=== PATIENT | female | born 1955 | race Caucasian/White ===

== ENCOUNTER 2019-07-31 17:56 | Emergency (ER) | payer OTHER ==
--- OUTSIDE RECORDS SUMMARY | 2019-07-31 18:56 | XMS REPORT | Continuity of Care Document ---
:1955 External Reference #:[id number] Author Name Abraham Moore DO, MPH Address [address] [place] [id number] Care Team Providers Name Role Phone Yoshi Jasso M.D. - Internal Care Team Information Records Management Associate [phone] Medicine Problems Active Problems Provider Date Chronic pain MooreElizph, DO, MPH Onset: 07/25/2019 Neck pain Moore, Abraham, DO, MPH Onset: 07/25/2019 Cervical somatic dysfunction Moore, Abraham, DO, MPH Onset: 07/25/2019 Pain in thoracic spine Moore, Abraham, DO, MPH Onset: 07/25/2019 Somatic dysfunction of thoracic region Moore, Abraham, DO, MPH Onset: 2019 Low back pain Moore, Abraham, DO, MPH Onset: 07/25/2019 Somatic dysfunction of lumbar region Moore, Abraham, DO, MPH Onset: 07/25/2019 Arthralgia of the pelvic region and thigh Moore, Abraham, DO, MPH Onset: 2019 Somatic dysfunction of pelvic region Moore, Abraham, DO, MPH Onset: 07/25/2019 Somatic dysfunction of sacroiliac joint Moore, Abraham, DO, MPH Onset: 2019 Sacrococcygeal disorders, not elsewhere Moore, Abraham, DO, MPH Onset: 2019 classified Malaise and fatigue Moore, Abraham, DO, MPH Onset: 07/25/2019 Gastroesophageal reflux disease Moore, Abraham, DO, MPH Onset: 07/25/2019 Systemic lupus erythematosus Moore, Abraham, DO, MPH Onset: 07/25/2019 Anemia Moore, Abraham, DO, MPH Onset: 07/25/2019 Nausea Abraham Moore, DO, MPH Onset: 07/25/2019 Long-term current use of opiate analgesic MooreAbraham price, DO, MPH Onset: 2019 drug Social History Type Date Description Comments Sex Unknown ETOH Use Occasionally consumes alcohol Recreational Drug Use Never Used Drugs Tobacco Use Start: Unknown End: Patient is a former smoker Unknown Smoking Status Reviewed: 07/25/19 Patient is a former smoker Allergies, Adverse Reactions, Alerts Active Allergies Reaction Severity Comments Date Vancomycin 10/25/2013 Nucynta 10/25/2013 Penicillin 10/25/2013 Sulfa Antibiotics 10/25/2013 Cipro 10/25/2013 Bactrim 10/25/2013 Biaxin 10/25/2013 Benadryl 10/25/2013 Demerol 10/25/2013 Librax 10/25/2013 Morphine 10/25/2013 Macrodantin 10/25/2013 Peanut-containing Drug Products 10/25/2013 Gluten 10/25/2013 Dairy 10/25/2013 Medications Active Medications SIG Qnty Indications Ordering Date Provider Ondansetron HCL si-2 by mouth 180tabs Abraham Moore, 07/25/2019 4mg every 8 hours as DO, MPH Tablets directed as needed Oxycontin si by mouth 60tabs Abraham Moore, 06/20/2018 20mg Tab every 12 hours as DO, MPH ER 12H Abuse-Det directed chronic pain patient Gabapentin si by mouth 90caps Abraham Moore, 06/20/2017 300mg three times a day DO, MPH Capsules as directed Oxycodone HCL si/4 30ml Abraham Moore, 08/03/2016 milliliters sl by DO, MPH 100mg/5ML mouth every 6 to 8 Concentrate hours as directed chronic pain patient Oxycodone HCL si-2 by mouth 180tabs Abraham Moore, 12/17/2014 5mg every 4 to 6 hours DO, MPH Tablets as directed chronic pain patient Shelby Thyroid si po qd 30tabs Unknown 180mg Tablets Protonix 1 po qd 30tabs Unknown 40mg Tablet Lasix 1 po bid 60tabs Unknown 40mg Tablets Potassium Chloride tid 60caps Unknown ER 10Meq Capsules ER Tylenol otc Unknown 325mg Tablets History Medications Keflex si by mouth twice 20caps Abraham Moore, 04/25/2019 - 500mg a day as directed HALEY GARG 06/18/2019 Capsules Medrol medication to be 21units Abraham Moore, 04/25/2019 - 4mg TBPK taken as directed DO MPH 06/18/2019 Immunizations Description No Information Available Vital Signs Date Vital Result Comment 07/25/2019 8:58am BP Systolic 132 mmHg BP Diastolic 84 mmHg Heart Rate 80 /min Respiratory Rate 20 /min Height 68 inches 5'8" Weight 155.00 lb Pain Level 6 Pain at this time. Pain Level With Medicine 5 on average with meds Pain Level Without Medicine 9 without meds BMI (Body Mass Index) 23.6 kg/m2 06/18/2019 9:19am BP Systolic 120 mmHg BP Diastolic 74 mmHg Heart Rate 76 /min Respiratory Rate 20 /min Height 68 inches 5'8" Weight 154.00 lb Pain Level 5 Pain at this time. Pain Level With Medicine 4 on average with meds Pain Level Without Medicine 9 without meds BMI (Body Mass Index) 23.4 kg/m2 Results Description No Information Available Procedures Date Code Description Status 06/18/2019 18383 Omt 3-4 Body Regions Completed 06/18/2019 04066 Therapeutic, Prophylactic Or Diagnostic Injection Subq/Im Completed 06/18/2019 65830 Brief Emotional/Behav Assessment W/ Scoring Doc Per Completed Standard Inst 05/18/2019 33476 Omt 3-4 Body Regions Completed 05/18/2019 59152 Therapeutic, Prophylactic Or Diagnostic Injection Subq/Im Completed 04/19/2019 73250 Omt 3-4 Body Regions Completed 04/19/2019 54980 Therapeutic, Prophylactic Or Diagnostic Injection Subq/Im Completed 03/21/2019 69407 Omt 3-4 Body Regions Completed 03/21/2019 76384 Therapeutic, Prophylactic Or Diagnostic Injection Subq/Im Completed 02/20/2019 12452 Omt 3-4 Body Regions Completed 02/20/2019 95263 Therapeutic, Prophylactic Or Diagnostic Injection Subq/Im Completed Medical Devices Description No Information Available Encounters Type Date Location Provider Dx Diagnosis Office Visit 06/18/2019 Main Office as Of Abraham Moore DO, G89.29 Other chronic pain 9:00a 06/30/13 MPH M54.2 Cervicalgia M99.01 Segmental and somatic dysfunction of cervical region M54.6 Pain in thoracic spine M99.02 Segmental and somatic dysfunction of thoracic region M54.5 Low back pain M99.03 Segmental and somatic dysfunction of lumbar region Z79.891 [facility] (current) use of opiate analgesic R53.83 Other fatigue M79.671 Pain in right foot Z13.31 Encounter for screening for depression Office Visit 05/18/2019 9:15a Main Office as Abraham Moore, G89.29 Other chronic Of 06/30/13 DO, MPH pain M54.2 Cervicalgia M99.01 Segmental and somatic dysfunction of cervical region M54.6 Pain in thoracic spine M99.02 Segmental and somatic dysfunction of thoracic region M54.5 Low back pain M99.03 Segmental and somatic dysfunction of lumbar region M79.671 Pain in right foot 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 R53.83 Other fatigue Office Visit 04/19/2019 9:00a Main Office as Abraham Moore, G89.29 Other chronic Of 06/30/13 DO, MPH pain M54.2 Cervicalgia M99.01 Segmental and somatic dysfunction of cervical region M54.6 Pain in thoracic spine M99.02 Segmental and somatic dysfunction of thoracic region M54.5 Low back pain M99.03 Segmental and somatic dysfunction of lumbar region 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 R53.83 Other fatigue Office Visit 03/21/2019 9:15a Main Office as Abraham Moore G89.29 Other chronic Of 06/30/13 DO, MPH pain M54.5 Low back pain M99.03 Segmental and somatic dysfunction of lumbar region M54.6 Pain in thoracic spine M99.02 Segmental and somatic dysfunction of thoracic region M54.2 Cervicalgia M99.01 Segmental and somatic dysfunction of cervical region R53.83 Other fatigue 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 Office Visit 02/20/2019 9:15a Main Office as Abraham Moore G89.29 Other chronic Of 06/30/13 DO, MPH pain M54.2 Cervicalgia M99.01 Segmental and somatic dysfunction of cervical region M54.6 Pain in thoracic spine M99.02 Segmental and somatic dysfunction of thoracic region M54.5 Low back pain M99.03 Segmental and somatic dysfunction of lumbar region 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 R53.83 Other fatigue Assessments Date Code Description Provider 07/25/2019 G89.29 Other chronic pain Moore, Abraham, DO, MPH 07/25/2019 M54.2 Cervicalgia Moore, Abraham, DO, MPH 07/25/2019 M99.01 Segmental and somatic dysfunction of Moore, Abraham, DO, MPH cervical region 07/25/2019 M54.6 Pain in thoracic spine Moore, Abraham, DO, MPH 07/25/2019 M99.02 Segmental and somatic dysfunction of Moore, Abraham, DO, MPH thoracic region 07/25/2019 M54.5 Low back pain Moore, Abraham, DO, MPH 07/25/2019 M99.03 Segmental and somatic dysfunction of lumbar Moore, Abraham, DO, MPH region 07/25/2019 M25.551 Pain in right hip Moore, Abraham, DO, MPH 07/25/2019 M25.552 Pain in left hip Moore, Abraham, DO, MPH 07/25/2019 R53.83 Other fatigue Moore, Abraham, DO, MPH 07/25/2019 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 Moore, Abraham , DO, MPH 07/25/2019 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, Abraham, DO , MPH nervous system 07/25/2019 M99.05 Segmental and somatic dysfunction of pelvic Moore, Abraham, DO, MPH region 07/25/2019 M53.3 Sacrococcygeal disorders, not elsewhere Moore, Abraham, DO, MPH classified 07/25/2019 M99.04 Segmental and somatic dysfunction of sacral Moore, Abraham, DO, MPH region 07/25/2019 K86.1 Other chronic pancreatitis Moore, Abraham, DO, MPH 07/25/2019 K21.9 Gastro-esophageal reflux disease without Moore, Abraham, DO, MPH esophagitis 07/25/2019 M32.9 Systemic lupus erythematosus, unspecified Moore, Abraham, DO , MPH 07/25/2019 D64.9 Anemia, unspecified Moore, Abraham, DO, MPH 07/25/2019 R11.0 Nausea Moore, Abraham, DO, MPH 06/18/2019 G89.29 Other chronic pain Moore, Abraham, DO, MPH 06/18/2019 M54.2 Cervicalgia Moore, Abraham, DO, MPH 06/18/2019 M99.01 Segmental and somatic dysfunction of Moore, Abraham, DO, MPH cervical region 06/18/2019 M54.6 Pain in thoracic spine Moore, Abraham, DO, MPH 06/18/2019 M99.02 Segmental and somatic dysfunction of Moore, Abraham, DO, MPH thoracic region 06/18/2019 M54.5 Low back pain Moore, Abraham, DO, MPH 06/18/2019 M99.03 Segmental and somatic dysfunction of lumbar Moore, Abraham, DO, MPH region 06/18/2019 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 Moore, Abraham , DO, MPH 06/18/2019 R53.83 Other fatigue Moore, Abraham, DO, MPH 06/18/2019 M79.671 Pain in right foot Moore, Abraham, DO, MPH 06/18/2019 Z13.31 Encounter for screening for depression Moore, Abraham, DO, MPH 05/18/2019 G89.29 Other chronic pain Moore, Abraham, DO, MPH 05/18/2019 M54.2 Cervicalgia Moore, Abraham, DO, MPH 05/18/2019 M99.01 Segmental and somatic dysfunction of Moore, Abraham, DO, MPH cervical region 05/18/2019 M54.6 Pain in thoracic spine Moore, Abraham, DO, MPH 05/18/2019 M99.02 Segmental and somatic dysfunction of Moore, Abraham, DO, MPH thoracic region 05/18/2019 M54.5 Low back pain Moore, Abraham, DO, MPH 05/18/2019 M99.03 Segmental and somatic dysfunction of lumbar Moore, Abraham, DO, MPH region 05/18/2019 M79.671 Pain in right foot Moore, Abraham, DO, MPH 05/18/2019 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 Moore, Abraham , DO, MPH 05/18/2019 R53.83 Other fatigue Moore, Abraham, DO, MPH 04/19/2019 G89.29 Other chronic pain Moore, Abraham, DO, MPH 04/19/2019 M54.2 Cervicalgia Moore, Abraham, DO, MPH 04/19/2019 M99.01 Segmental and somatic dysfunction of Moore, Abraham, DO, MPH cervical region 04/19/2019 M54.6 Pain in thoracic spine Moore, Abraham, DO, MPH 04/19/2019 M99.02 Segmental and somatic dysfunction of Moore, Abraham, DO, MPH thoracic region 04/19/2019 M54.5 Low back pain Moore, Abraham, DO, MPH 04/19/2019 M99.03 Segmental and somatic dysfunction of lumbar Moore, Abraham, DO, MPH region 04/19/2019 Z79.891 [facility] (current) use of opiate analgesic Moore, Abraham , DO, MPH 04/19/2019 R53.83 Other fatigue Moore, Abraham, DO, MPH 03/21/2019 G89.29 Other chronic pain Moore, Abraham, DO, MPH 03/21/2019 M54.5 Low back pain Moore, Abraham, DO, MPH 03/21/2019 M99.03 Segmental and somatic dysfunction of lumbar Moore, Abraham, DO, MPH region 03/21/2019 M54.6 Pain in thoracic spine Moore, Abraham, DO, MPH 03/21/2019 M99.02 Segmental and somatic dysfunction of Moore, Abraham, DO, MPH thoracic region 03/21/2019 M54.2 Cervicalgia Moore, Abraham, DO, MPH 03/21/2019 M99.01 Segmental and somatic dysfunction of Moore, Abraham, DO, MPH cervical region 03/21/2019 R53.83 Other fatigue Moore, Abraham, DO, MPH 03/21/2019 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 Moore, Abraham , DO, MPH 02/20/2019 G89.29 Other chronic pain Abraham Moore DO MPH 02/20/2019 M54.2 Cervicalgia Abraham Moore DO, MPH 02/20/2019 M99.01 Segmental and somatic dysfunction of Abraham Moore DO, MPH cervical region 02/20/2019 M54.6 Pain in thoracic spine Abraham Moore DO MPH 02/20/2019 M99.02 Segmental and somatic dysfunction of Abraham Moore DO, MPH thoracic region 02/20/2019 M54.5 Low back pain Abraham Moore DO MPH 02/20/2019 M99.03 Segmental and somatic dysfunction of lumbar Abraham Moore DO, MPH region 02/20/2019 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 Symptoms and complaints discussed and reviewed today. No significant changes in physical findings. Continue current medical pain management.M54.2 CervicalgiaComments: Chronic. Symptoms and complaints discussed and reviewed today. No significant changes in physical findings. Continue current medical pain management.M99.01 Segmental and somatic dysfunction of cervical regionComments:Chronic. Symptoms and complaints discussed and reviewed today. Somatic dysfunctions noted warrantingOMT. Continue current medical pain management and OMT. [id number]. OMT performed.M54.6 Pain in thoracic spineComments:Chronic.Symptoms and complaints discussed and reviewed today. No significant changes in physical findings. Continue current medical pain management.M99.02 Segmental and somatic dysfunction of thoracic regionComments:Chronic. Symptoms and complaints discussed and reviewed today. Notable somatic dysfunctions noted warranting OMT. Continue current medical pain management and OMT. [id number]. OMT performed after evaluation. HVLA.M54.5 Low back painComments:Chronic. Symptoms and complaints discussed and reviewed today.No changes in physical findings. Patient is stable and comfortable when current medical therapy is rendered.M99.03 Segmental and somatic dysfunction of lumbar regionComments: Chronic. Symptoms and complaints discussed and reviewed today. Lumbar somatic dysfunctions noted warranting OMT. Continue current medical pain management and OMT. [id number]. OMT performed after evaluation. HVLA.M25.551 Pain in right hipComments:Chronic. Symptoms and complaints discussed and reviewed today. No significant changes in physical findings. Continue current medical pain management.M25.552 Pain in left hipComments:Chronic. Symptoms and complaints discussed and reviewed today. No significant changes in physical findings. Continue current medical pain management.R53.83 Other fatigueComments:Symptoms and complaints discussed and reviewed today. No significant changes in physical findings. Continue current medical pain management. B12 injection administered after patient evaluated. 1ml IM for fatigue. (See Consent for injection-B12 document for lot number and expiration date.)Z79.891 regional intermodal truck driver ( current) use of opiate analgesicNew Labs:Urine Drug Screen, Ordered: Comments:Urine drug screen sample taken today to monitor opiate use and to monitor use of illicit substances.Will discuss results at next appointment.The following tests were ordered:6 AM, AMPH, MICHAEL, AMY, BUP, CARIS, COCM, ETG, FENT , MCSHSG, OPI, OXY, PCP, TAPEN, XTSY, ZOLP. A urine drug test (UDT) was ordered for this patient and collected on site today. Creatinine has been ordered as well for specimen validity, not for kidney function. Preliminary UDT results are not final and should not be used to determine patient care or plan of treatment. Initially a qualitative immunoassay screen will bedone. Any inconsistent or positive findings will be further tested with a more comprehensive quantitative confirmation LCMS study. It is part of the treatment process of prescribing controlled substances and is considered standard of care.G90.3 Multi-system degeneration of the autonomic nervous systemNew Orders: Sudomotor Test, Ordered: 07/25/19Comments:Sudomotor testing ordered to determine the effect, if any, of chronic illness and pain on small nerve fibers and/or autonomic nervous system function. Future testing will help to monitor the effects ofchronic illness,pain and subsequent treatments on the autonomic nervous system. If proper diagnosis and monitoring of ANS and/or small pain fiber problems is not appropriately addressed, adequate pain management may not be achieved.M99.05 Segmental and somatic dysfunction of pelvic regionComments: Chronic. Symptoms and complaints discussed and reviewed today. Pelvic somatic dysfunctions noted warranting OMT. Continue current medical pain management and OMT. Pelvic Shear. OMT performed. MFR. HVLA.M53.3 Sacrococcygeal disorders , not elsewhere classifiedComments:Chronic. Symptoms and complaints discussed and reviewed today. Notable sacral somatic dysfunctions warranting OMT. Patient is stable and comfortable with current medical therapy.M99.04 Segmental and somatic dysfunction of sacral regionComments:Chronic. Symptoms and complaints discussed and reviewed today. Sacral somatic dysfunctions noted warranting OMT. Continue current medical pain management and OMT. Sacral Torsion. OMT performed after evaluation. HVLA.K86.1 Other chronic pancreatitisComments: Chronic. Symptoms and complaints discussed and reviewed today. No significant changes in physical findings. Continue current medical pain management.K21.9 Gastro-esophageal reflux disease without esophagitisComments:Following as pertains to chronic pain medications particularly NSAIDS and Tylenol as well as any meds that effect the GI tract.M32.9 Systemic lupus erythematosus, unspecifiedComments:Chronic. Symptoms and complaints discussed and reviewed today. Continue current medical pain management. 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 Will follow as pertains to pain management.D64.9 Anemia, unspecifiedComments:Followed by Dr Crawford in hemotology/oncology, currently. Will follow in terms of pain management.R11.0 NauseaComments:Continue medical management with Zofran - New Medications listed below.AllNew Medication: Ondansetron HCL 4 mg - si-2 by mouth every 8 hours as directed as neededComments:Continue current medical pain management; injection therapy, osteopathic manipulation, PT / modalities, and consults as needed to manage chronic pain.Non - opioid pain management discussed and optionsdiscussed.Side effects discussed; anticipatory guidance given. Patient clearly understand and agree with all medical treatments and suggestions. All medicines prescribed are adequate and appropriate for this patient's complaint of pain, medical history, physical, and personal goals.Goals of Treatment are to provide adequate and appropriate multidisciplinary medical pain management to increase/ maintain patient's quality of life and functionality while maintaining satisfactory side effect profile andminimizing regional intermodal truck driver end-organ damage. Importance of regular nutrition throughout the day discussed.Activity as toleratedContinue with PCP Functional Status Description No Information Available Mental Status Description No Information Available Referrals Description No Information Available
--- OUTSIDE RECORDS SUMMARY | 2019-07-31 18:56 | XMS REPORT | Continuity of Care Document ---
:1955 External Reference #:[id number] Author Name Abraham Moore DO, MPH Address [address] [place] [address], [address] [place] [address] Care Team Providers Name Role Phone Yoshi Jasso M.D. - Internal Care Team Information Cpc Medicine Problems Description No Information Available Social History Type Date Description Comments Sex Unknown ETOH Use Occasionally consumes alcohol Recreational Drug Use Never Used Drugs Tobacco Use Start: Unknown End: Patient is a former smoker Unknown Smoking Status Reviewed: 06/18/19 Patient is a former smoker Allergies, Adverse Reactions, Alerts Active Allergies Reaction Severity Comments Date Vancomycin 10/25/2013 Nucynta 10/25/2013 Penicillin 10/25/2013 Sulfa Antibiotics 10/25/2013 Cipro 10/25/2013 Bactrim 10/25/2013 Biaxin 10/25/2013 Benadryl 10/25/2013 Demerol 10/25/2013 Librax 10/25/2013 Morphine 10/25/2013 Macrodantin 10/25/2013 Peanut-containing Drug Products 10/25/2013 Gluten 10/25/2013 Dairy 10/25/2013 Medications Active Medications SIG Qnty Indications Ordering Date Provider Oxycontin si by mouth 60tabs Abraham Moore, [...] MPH Tablets as directed chronic pain patient Lizette Thyroid si po qd 30tabs Unknown 180mg Tablets Protonix 1 po qd 30tabs Unknown 40mg Tablet Lasix 1 po bid 60tabs Unknown 40mg Tablets Potassium Chloride tid 60caps Unknown ER 10Meq Capsules ER Symbicort Unknown 80-4.5mcg/Act Aerosol Tylenol otc Unknown 325mg Tablets Duloxetine HCL 1 cap by mouth Unknown 20mg every morning as Caps DR Raymond directed chronic pain patient. History Medications Keflex si by mouth twice 20caps Abraham Moore, 04/25/2019 - 500mg a day as directed DO MPH 06/18/2019 Capsules Medrol medication to be 21units Abraham Moore, 04/25/2019 - 4mg TBPK taken as directed DO MPH 06/18/2019 Immunizations Description No Information Available Vital Signs Date Vital Result Comment 06/18/2019 9:19am BP Systolic 120 mmHg BP Diastolic 74 mmHg Heart Rate 76 /min Respiratory Rate 20 /min Height 68 inches 5'8" Weight 154.00 lb Pain Level 5 Pain at this time. Pain Level With Medicine 4 on average with meds Pain Level Without Medicine 9 without meds BMI (Body Mass Index) 23.4 kg/m2 05/18/2019 9:15am BP Systolic 116 mmHg BP Diastolic 70 mmHg Heart Rate 72 /min Respiratory Rate 18 /min Height 68 inches 5'8" Weight 154.00 lb Pain Level 4 Pain at this time. Pain Level With Medicine 3 on average with meds Pain Level Without Medicine 9 without meds BMI (Body Mass Index) 23.4 kg/m2 Results Description No Information Available Procedures Date Code Description Status 05/18/2019 31568 Omt 3-4 Body Regions Completed 05/18/2019 53147 Therapeutic, Prophylactic Or Diagnostic Injection Subq/Im Completed 04/19/2019 72661 Omt 3-4 Body Regions Completed 04/19/2019 21082 Therapeutic, Prophylactic Or Diagnostic Injection Subq/Im Completed 03/21/2019 42301 Omt 3-4 Body Regions Completed 03/21/2019 64051 Therapeutic, Prophylactic Or Diagnostic Injection Subq/Im Completed 02/20/2019 18507 Omt 3-4 Body Regions Completed 02/20/2019 38915 Therapeutic, Prophylactic Or Diagnostic Injection Subq/Im Completed 01/11/2019 95309 Omt 3-4 Body Regions Completed 01/11/2019 16456 Therapeutic, Prophylactic Or Diagnostic Injection Subq/Im Completed 12/20/2018 59073 Omt 5-6 Body Regions Completed 12/20/2018 68368 Therapeutic, Prophylactic Or Diagnostic Injection Subq/Im Completed Medical Devices Description No Information Available Encounters Type Date Location Provider Dx Diagnosis Office Visit 05/18/2019 Main Office as Of Abraham Moore DO, G89.29 Other chronic pain 9:15a 06/30/13 MPH M54.2 Cervicalgia M99.01 Segmental and somatic dysfunction of cervical region M54.6 Pain in thoracic spine M99.02 Segmental and somatic dysfunction of thoracic region M54.5 Low back pain M99.03 Segmental and somatic dysfunction of lumbar region M79.671 Pain in right foot Z79.891 [facility] (current) use of opiate analgesic R53.83 Other fatigue Office Visit 04/19/2019 9:00a Main Office as Abraham Moore G89.29 Other chronic Of 06/30/13 DO, MPH pain M54.2 Cervicalgia M99.01 Segmental and somatic dysfunction of cervical region M54.6 Pain in thoracic spine M99.02 Segmental and somatic dysfunction of thoracic region M54.5 Low back pain M99.03 Segmental and somatic dysfunction of lumbar region 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 R53.83 Other [...] of cervical region R53.83 Other fatigue 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 Office Visit 02/20/2019 9:15a Main Office as Abraham Moore G89.29 Other chronic Of 06/30/13 DO, MPH pain M54.2 Cervicalgia M99.01 Segmental and somatic dysfunction of cervical region M54.6 Pain in thoracic spine M99.02 Segmental and somatic dysfunction of thoracic region M54.5 Low back pain M99.03 Segmental and somatic dysfunction of lumbar region Z79.891 [facility] (current) use of opiate analgesic R53.83 Other fatigue Office Visit 01/11/2019 9:45a Main Office as Abraham Moore, G89.29 Other chronic Of 06/30/13 DO, MPH pain M54.6 Pain in thoracic spine M99.02 Segmental and somatic dysfunction of thoracic region M54.5 Low back pain M99.03 Segmental and somatic dysfunction of lumbar region M54.2 Cervicalgia M99.01 Segmental and somatic dysfunction of cervical region 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 R53.83 Other fatigue Office Visit 12/20/2018 9:15a Main Office as Abraham oMore, G89.29 Other chronic Of 06/30/13 DO, MPH pain M54.2 Cervicalgia M99.01 Segmental and somatic dysfunction of cervical region M54.6 Pain in thoracic spine M99.02 Segmental and somatic dysfunction of thoracic region M54.5 Low back pain M99.03 Segmental and somatic dysfunction of lumbar region M53.3 Sacrococcygeal disorders, not elsewhere classified M99.04 Segmental and somatic dysfunction of sacral region M25.551 Pain in right hip R53.83 Other fatigue 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 M25.552 Pain in left hip M99.05 Segmental and somatic dysfunction of pelvic region Assessments Date Code Description Provider 06/18/2019 G89.29 Other chronic pain Abraham Moore DO, MPH 06/18/2019 M54.2 Cervicalgia Abraham Moore DO, MPH 06/18/2019 M99.01 Segmental and somatic dysfunction of Abraham Moore DO, MPH cervical region 06/18/2019 M54.6 Pain in thoracic spine Abraham Moore DO, MPH 06/18/2019 M99.02 Segmental and somatic dysfunction of Abraham Moore DO, MPH thoracic region 06/18/2019 M54.5 Low back pain Moore, Abraham, DO, MPH 06/18/2019 M99.03 Segmental and somatic dysfunction of lumbar Moore, Abraham, DO, MPH region 06/18/2019 Z79.891 [facility] (current) use of opiate analgesic Moore, Abraham [...] foot Moore, Abraham, DO, MPH 05/18/2019 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 Moore, Abraham [...] Moore, Abraham, DO, MPH region 04/19/2019 Z79.891 [facility] (current) use of opiate analgesic Moore, Abraham [...] fatigue Moore, Abraham, DO, MPH 03/21/2019 Z79.891 [facility] (current) use of opiate analgesic Moore, Abraham , DO, MPH 02/20/2019 G89.29 Other chronic pain Moore, Abraham, DO, MPH 02/20/2019 M54.2 Cervicalgia Moore, Abraham, DO, MPH 02/20/2019 M99.01 Segmental and somatic dysfunction of Moore, Abraham, DO, MPH cervical region 02/20/2019 M54.6 Pain in thoracic spine Moore, Abraham, DO, MPH 02/20/2019 M99.02 Segmental and somatic dysfunction of Moore, Abraham, DO, MPH thoracic region 02/20/2019 M54.5 Low back pain Moore, Abraham, DO, MPH 02/20/2019 M99.03 Segmental and somatic dysfunction of lumbar Moore, Abraham, DO, MPH region 02/20/2019 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 Moore, Abraham , DO, MPH 02/20/2019 R53.83 Other fatigue Moore, Abraham, DO, MPH 01/11/2019 G89.29 Other chronic pain Moore, Abraham, DO, MPH 01/11/2019 M54.6 Pain in thoracic spine Moore, Abraham, DO, MPH 01/11/2019 M99.02 Segmental and somatic dysfunction of Moore, Abraham, DO, MPH thoracic region 01/11/2019 M54.5 Low back pain Moore, Abraham, DO, MPH 01/11/2019 M99.03 Segmental and somatic dysfunction of lumbar Moore, Abraham, DO, MPH region 01/11/2019 M54.2 Cervicalgia Moore, Abraham, DO, MPH 01/11/2019 M99.01 Segmental and somatic dysfunction of Moore, Abraham, DO, MPH cervical region 01/11/2019 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 Moore, Abraham , DO, MPH 01/11/2019 R53.83 Other fatigue Moore, Abraham, DO, MPH 12/20/2018 G89.29 Other chronic pain Moore, Abraham, DO, MPH 12/20/2018 M54.2 Cervicalgia Moore, Abraham, DO, MPH 12/20/2018 M99.01 Segmental and somatic dysfunction of Moore, Abraham, DO, MPH cervical region 12/20/2018 M54.6 Pain in thoracic spine Moore, Abraham, DO, MPH 12/20/2018 M99.02 Segmental and somatic dysfunction of Moore, Abraham, DO, MPH thoracic region 12/20/2018 M54.5 Low back pain Moore, Abraham, DO, MPH 12/20/2018 M99.03 Segmental and somatic dysfunction of lumbar Moore, Abraham, DO, MPH region 12/20/2018 M53.3 Sacrococcygeal disorders, not elsewhere Moore, Abraham, DO, MPH classified 12/20/2018 M99.04 Segmental and somatic dysfunction of sacral Moore, Abraham, DO, MPH region 12/20/2018 M25.551 Pain in right hip Moore, Abraham, DO, MPH 12/20/2018 R53.83 Other fatigue Moore, Abraham, DO, MPH 12/20/2018 Z79.891 [facility] (current) use of opiate analgesic Abraham Moore DO MPH 12/20/2018 M25.552 Pain in left hip Abraham Moore DO MPH 12/20/2018 M99.05 Segmental and somatic dysfunction of pelvic Abraham Moore DO MPH region Plan of Treatment Future Appointment(s):11/15/2019 9:15 am - Abraham Moore DO MPH at Main Office as Of 06/30/1404 9:00 am - Abraham Moore DO, MPH at Main Office as Of 06/30/1403 9:15 am - Abraham Moore DO MPH at Main Office as Of 06/30 9:15 am - Abraham Moore DO, MPH at Main Office as Of 06/30/14012019 9:00 am - Abraham Moore DO MPH at Main Office as Of 06/30/1400 - Abraham Moore DO, MPHG89.29 Other chronic [...] Continue current medical pain management and OMT. [id number]. OMT performed.M54.6 Pain in thoracic spineComments:Chronic.Symptoms and [...] Continue current medical pain management and OMT. [id number]. OMT performed after evaluation. DEBRALA.Z79.891 watermelon harvesting supervisor ( current) use of opiate analgesicNew Labs:Urine [...] controlled substances and is considered standard of care.R53.83 Other fatigueComments:Symptoms and complaints discussed and reviewed today. No significant changes in physical findings. Continue current medical pain management. B12 injection administered after patient evaluated. 1ml IM for fatigue. (See Consent for injection-B12 document for lot number and expiration date.)M79.671 Pain in right footComments:Symptoms and complaints discussed and reviewed today. No significant changes in physical findings. Patient has seen Dr. Esquivel regarding this, follow up with him.Z13.31 Encounter for screening for depressionComments:PHQ-9 Depression Screen administered today , results were Positive at this time. Followed by PCP. Will follow as pertains to their pain. Patient seems to be stable today. Reassurance and counseling. Patient seems to be stable today.AllComments:Continue current medical pain management; injection therapy, osteopathic [...] while maintaining satisfactory side effect profile andminimizing buttermaker helper end-organ damage. Importance of regular nutrition throughout the day discussed.Activity as toleratedContinue with PCP Functional Status Description No Information Available Mental Status Description No Information Available Referrals Description No Information Available
--- OUTSIDE RECORDS SUMMARY | 2019-07-31 18:56 | XMS REPORT | Continuity of Care Document ---
:1955 External Reference #:[id number] Author Name Aries Esquivel M.D. (transmitted by agent of provider Everton Gustafson) Address [address] [facility] [place] [address] Care Team Providers Name Role Phone Yoshi Jasso MD - Internal Care Team Information Analyst [employer] Medicine Problems Description No Information Available Social History Type Date Description Comments Sex Unknown Tobacco Use Start: Unknown End: Patient is a former smoker Unknown Tobacco Use Start: Unknown Former Smoker quite 26 years ago Smoking Status Reviewed: 06/13/19 Former Smoker quite 26 years ago Exercise Type/Frequency Exercises regularly Allergies, Adverse Reactions, Alerts Active Allergies Reaction Severity Comments Date Marobid Hives 10/25/2017 Cipro Hives 10/25/2017 Cefuroxine Axetil Hives 10/25/2017 Cardizem Hives 10/25/2017 Librax Hives 10/25/2017 Procardia Hives 10/25/2017 Penicillin Hives 10/25/2017 Sulfa Antibiotics Hives 10/25/2017 Biaxin Hives 10/25/2017 Bactrim Hives 10/25/2017 Clyndomycin Hives 10/25/2017 Demerol Hives 10/25/2017 Morphine Hives 10/25/2017 Vancomycin Severe Analphylactic Shock 10/25/2017 Nucynta Severe Anaphylactic Shock 10/25/2017 Dairy 10/25/2017 Peanut Oil 10/25/2017 Gluten 10/25/2017 Flaxseed Extract 10/25/2017 Medications Active Medications SIG Qnty Indications Ordering Provider Date Vitamin D take 1 capsule 14caps Adalid Best, 11/05/2018 (Ergocalciferol) by mouth once M.D. weekly 56136Rmay Capsules D3 Super Strength take one 90caps Adalid Best, 11/01/2018 capsule/tablet M.D. 2000Unit Capsules daily by mouth Gabapentin 1 by mouth three 90caps Adalid Hoyosdor, 10/25/2017 300mg Capsules times a day M.D. [place] Thyroid 300 mg/day 90tabs Adalid Hoyosdor, 10/25/2017 90mg M.D. Tablets Furosemide 2 by mouth every 90tabs Adalid Hoyosdor, 10/25/2017 40mg Tablets day M.D. Zofran Odt 1 tab by mouth 20tabs dAalid Hoyosdor, 10/25/2017 Tablets every 6 hours as M.D. Dispers needed nausea Potassium Chloride ER 3 by mouth every Unknown day 10Meq Capsules ER Pantoprazole Sodium 1 by mouth every Unknown 40mg day Tablets DR Oxycontin Unknown 5mg Ventolin HFA 2 puffs by mouth Unknown 108(90Base) four times a day mcg/Act Aerosol as needed Oxycontin two by mouth Unknown 10mg Tab ER 12H every 12 hours Abuse-Det Immunizations Description No Information Available Vital Signs Date Vital Result Comment 06/13/2019 1:41pm Height 67 inches 5'7" Weight 160.00 lb Heart Rate 77 /min Respiratory Rate 16 /min Body Temperature 98.6 F Pain Level 5 O2 % BldC Oximetry 96 % BMI (Body Mass Index) 25.1 kg/m2 11/01/2018 10:06am Height 67 inches 5'7" Weight 152.00 lb Heart Rate 73 /min BP Systolic Sitting 115 mmHg BP Diastolic Sitting 70 mmHg Respiratory Rate 14 /min BMI (Body Mass Index) 23.8 kg/m2 Results Description No Information Available Procedures Description No Information Available Medical Devices Description No Information Available Encounters Type Date Location Provider Dx Diagnosis Office Visit 12/12/2018 [facility] Gamaliel Crawford, D61.818 Other pancytopenia 4:20p [facility] AT [facility]in Volin D64.9 Anemia, unspecified M32.9 Systemic lupus erythematosus, unspecified M35.01 Sicca syndrome with keratoconjunctivitis K86.1 Other chronic pancreatitis R53.83 Other fatigue Assessments Date Code Description Provider 12/12/2018 D61.818 Other pancytopenia Gamaliel Crawford M.D. 12/12/2018 D64.9 Anemia, unspecified Gamaliel Crawford M.D. 12/12/2018 M32.9 Systemic lupus erythematosus, unspecified Gamaliel Crawford M.D. 12/12/2018 M35.01 Sicca syndrome with keratoconjunctivitis Gamaliel Crawford M.D. 12/12/2018 K86.1 Other chronic pancreatitis Gamaliel Crawford M.D. 12/12/2018 R53.83 Other fatigue Gamaliel Crawford M.D. Plan of Treatment Future Appointment(s):08/02/2019 10:00 am - ARMANDO Packer at [facility] Functional Status Description No Information Available Mental Status Description No Information Available Referrals Description No Information Available
[2019-07-31 18:59] VITALS: BP 102/66
--- NOTE | 2019-07-31 19:15 | UC ---
Knee Pain HPI - HPI Summary HPI Summary: 64 yo female fell forward from landing on her hands and knees no head injury or neck pain - History of Current Complaint Chief Complaint: UCLowerExtremity Stated Complaint: BILATERAL KNEE/RT ANKLE INJURY Hx Obtained From: Patient Onset/Duration: Sudden Onset Severity Initially: Moderate Severity Currently: Moderate Pain Intensity: 8 Character: Unable to Describe Aggravating Factor(s): Movement, Weight Bearing Alleviating Factor(s): Rest Associated Signs And Symptoms: Positive: Negative Able to Bear Weight: Yes - Allergies/Home Medications Allergies/Adverse Reactions: Allergies Allergy/AdvReac Type Severity Reaction Status Date / Time chlordiazepoxide Allergy Mild Hives Verified 07/31/19 19:11 [From Librax (with clidinium)] ciprofloxacin [From Cipro] Allergy Mild Hives Verified 07/31/19 19:11 clarithromycin [From Biaxin] Allergy Mild Hives Verified 07/31/19 19:11 clidinium Allergy Mild Hives Verified 07/31/19 19:11 [From Librax (with clidinium)] clindamycin Allergy Mild Hives Verified 07/31/19 19:11 diphenhydramine Allergy Mild Hives Verified 07/31/19 19:11 [From Benadryl] flaxseed Allergy Mild Hives Verified 07/31/19 19:11 gluten Allergy Mild Hives Verified 07/31/19 19:11 lactase [From Dairy Aid] Allergy Mild Unknown Verified 07/31/19 19:11 Reaction Details meperidine [From Demerol] Allergy Mild Hives Verified 07/31/19 19:11 morphine Allergy Mild Hives Verified 07/31/19 19:11 nitrofurantoin Allergy Mild Hives Verified 07/31/19 19:11 [From Macrodantin] peanut Allergy Mild Hives Verified 07/31/19 19:11 Penicillins Allergy Mild Hives Verified 07/31/19 19:11 sulfamethoxazole Allergy Mild Hives Verified 07/31/19 19:11 [From Bactrim] tapentadol [From Nucynta] Allergy Mild Anaphylatic Verified 07/31/19 19:11 Shock trimethoprim [From Bactrim] Allergy Mild Hives Verified 07/31/19 19:11 vancomycin Allergy Mild Anaphylatic Verified 07/31/19 19:11 Shock Sulfa (Sulfonamide Allergy Hives Verified 07/31/19 19:11 Antibiotics) Home Medications: Home Medications Lomotil 0.25 mg PO DAILY 10/17/13 [History Confirmed 07/31/19] Potassium 1 tab PO TID 10/17/13 [History Confirmed 07/31/19] Protonix 40 mg PO DAILY 10/17/13 [History Confirmed 07/31/19] Tylenol 650 mg PO TID PRN 10/17/13 [History Confirmed 07/31/19] Furosemide TAB* [Lasix TAB*] 40 mg PO BID 07/31/19 [History Confirmed 07/31/19] Gabapentin 300 mg PO TID 07/31/19 [History Confirmed 07/31/19] Ondansetron TAB* [Zofran 4 MG Tab*] 4 mg PO Q6H PRN 07/31/19 [History Confirmed 07/31/19] Thyroid,Pork [[place] Thyroid] 150 mg PO BID 07/31/19 [History Confirmed 07/31/19 ] oxyCODONE SR TAB(*) [Oxycontin 20 mg (*)] 20 mg PO BID 07/31/19 [History Confirmed 07/31/19] PMH/Surg Hx/FS Hx/Imm Hx Previously Healthy: Yes Cardiovascular History: Hypertension - Surgical History Surgical History: Yes Surgery Procedure, Year, and Place: left hip surgery-Total Arthroplasty 2004, Right knee total Arthroplasty 2014. colectomy. hysterectomy- Complete. 3 C SECTIONS. GALLBLADDER - Family History Known Family History: Positive: Hypertension - Social History Alcohol Use: Occasionally Substance Use Type: None Smoking Status (MU): Former Smoker Review of Systems All Other Systems Reviewed And Are Negative: Yes Constitutional: Positive: Negative Skin: Positive: Negative Eyes: Positive: Negative ENT: Positive: Negative Respiratory: Positive: Negative Cardiovascular: Positive: Negative Gastrointestinal: Positive: Negative Genitourinary: Positive: Negative Motor: Positive: Negative Neurovascular: Positive: Negative Musculoskeletal: Positive: Arthralgia Neurological/Mental Status: Positive: Negative Psychological: Positive: Negative Physical Exam - Summary Physical Exam Summary: Vital Signs Reviewed: Yes A+Ox3, no distress Eyes: Conjunctiva Clear ENT: Hearing grossly normal neck: supple Respiratory: Positive: No respiratory distress, No accessory muscle use Cardiovascular: skin color reflect adequate perfusion Musculoskeletal Exam: MARC x 4 without difficulty Neurological: Positive: Alert, ambulatory without difficulty Psychological: Positive: Normal Response To Family Skin: Positive: no rash, no ecchymosis Vital Signs: Initial Vital Signs Temp 98.3 F 07/31/19 18:56 Pulse 88 07/31/19 18:56 Resp 17 07/31/19 18:56 BP 102/66 07/31/19 18:56 Pulse Ox 99 07/31/19 18:56 Diagnostics - Radiology No standard instances Radiology Interpretation Completed By: ED Physician Summary of Radiographic Findings: no fx Knee Pain Course/Dx - Differential Dx/Diagnosis Provider Diagnosis: Contusion of knee, left, Contusion of right knee, Ankle sprain Discharge ED - Sign-Out/Discharge Documenting (check all that apply): Patient Departure All imaging exams completed and their final reports reviewed: No - Discharge Plan Condition: Stable Disposition: HOME Patient Education Materials: Ankle Sprain (ED), Contusion in Adults (ED) Referrals: Yoshi Jasso MD [Primary Care Provider] - Additional Instructions: As discussed, your radiograph was reviewed by the provider that treated you tonight. It will be read by a radiologist tomorrow morning. If there is a finding other than that discussed with you today, you will receive a call from a care provider. Rest, ice, and elevate the knee and ankle to help alleviate pain and swelling. You may use your boot at home for support of the ankle. Follow up with the orthopedic referral listed below if pain does not improve within 1-2 weeks. - Billing Disposition and Condition Condition: STABLE Disposition: Home
== END 2019-07-31 20:17 | disposition home or self-care (01) ==
LOC: UCCORT 17:56
DX: S80.02XA Contusion of left knee, initial encounter (principal); S80.01XA Contusion of right knee, initial encounter; S93.401A Sprain of unspecified ligament of right ankle, initial encounter; I10 Essential (primary) hypertension; W18.30XA Fall on same level, unspecified, initial encounter; Y92.9 Unspecified place or not applicable; Z88.0 Allergy status to penicillin; Z88.1 Allergy status to other antibiotic agents; Z88.2 Allergy status to sulfonamides; Z88.5 Allergy status to narcotic agent; Z88.6 Allergy status to analgesic agent; Z88.8 Allergy status to other drugs, medicaments and biological substances; Z91.010 Allergy to peanuts; Z91.018 Allergy to other foods; Z91.011 Allergy to milk products; Z87.891 Personal history of nicotine dependence
CPT/HCPCS: 99211; G0463